=== PATIENT | male | born 1990 | race African-American/Black ===

== ENCOUNTER 2017-09-22 02:58 | Emergency (ER) | payer OTHER ==
[~2017-09-22] VITALS: Ht 175.3 cm; Wt 88.5 kg
[2017-09-22 03:16] VITALS: BP 135/82
[2017-09-22] MEDS ORDERED: Clindamycin 150mg cap ORAL ONE (03:30)
[2017-09-22] MEDS ORDERED: CLINDAMYCIN HC300 MG ORAL (03:33)
[2017-09-22] MEDS ORDERED: IBUPROFEN600 MG ORAL (03:33)
[2017-09-22 03:45] VITALS: BP 135/82
--- NOTE | 2017-09-22 03:59 | Emergency Room Report ---
History of Present Illness General Chief Complaint: Sore Throat Source: Patient Present Illness HPI Patient presents with a sore throat 5 out of 10 sharp pain is worse with swallowing Subjectively feels like he has a low-grade fever Denies any posterior neck pain Denies any chest pain or shortness of breath symptoms started earlier yesterday denies any difficulty swallowing denies any change with voice Allergies: Coded Allergies: PENICILLINS (Verified Allergy, Unknown, 09/22/17) Patient History Past Medical History: see triage record Pertinent Family History: none Reviewed Nursing Documentation: PMH: Agreed; PSxH: Agreed Nursing Documentation-PMH Past Medical History: No Stated History Review of Systems All Other Systems: negative except mentioned in HPI Physical Exam Vital Signs Date Time Temp Pulse Resp B/P (MAP) Pulse Ox O2 Delivery O2 Flow Rate FiO2 09/22/17 03:05 98.4 85 15 135/82 96 Room Air 98.4 Sp02 EP Interpretation: reviewed, normal General Appearance: well appearing, no apparent distress Head: normocephalic, atraumatic Eyes: bilateral eye PERRL, bilateral eye EOMI ENT: hearing grossly normal, no angioedema, normal voice, pharyngeal erythema Neck: full range of motion, supple Respiratory: lungs clear, normal breath sounds Cardiovascular #1: regular rate, rhythm, no edema Gastrointestinal: non tender, soft Musculoskeletal: normal inspection Neurologic: alert, oriented x3, responsive Skin: normal color, no rash, warm/dry Lymphatic: no adenopathy Medical Decision Making Diagnostic Impression: Primary Impression: pharyngitis ER Course Given the erythematous findings patient appears to have likely pharyngitis My suspicion for peritonsillar abscess or retropharyngeal abscess is low and patient will have initial conservative outpatient trial Last Vital Signs Date Time Temp Pulse Resp B/P (MAP) Pulse Ox O2 Delivery O2 Flow Rate FiO2 09/22/17 03:45 98.4 85 15 135/82 96 Room Air 209.1 Status: improved Disposition: HOME, SELF-CARE Condition: Improved Scripts Ibuprofen* (MOTRIN*) 600 Mg Tablet 600 MG ORAL Q8H PRN for For Pain, #20 TAB 0 Refills Prov: Fabrizio Henao DO 09/22/17 Clindamycin Hcl (CLINDAMYCIN HCL) 300 Mg Capsule 300 MG ORAL THREE TIMES A DAY, #15 CAP Prov: Fabrizio Henao DO 09/22/17 Patient Instructions: Pharyngitis, [id number] Additional Instructions: Patient is provided with the discharge instructions notified to follow up with primary doctor in the next 2-3 days otherwise return to the er with any worsening symptoms. Please note that this report is being documented using [employer] technology. This can lead to erroneous entry secondary to incorrect interpretation by the dictating instrument. Fabrizio Henao DO Sep 22, 2017 03:59
== END 2017-09-22 03:45 | disposition home or self-care (01) ==
LOC: EMR 03:45
DX: J02.9 Acute pharyngitis, unspecified (principal); Z88.0 Allergy status to penicillin
CPT/HCPCS: 99284